=== PATIENT | female | born 1985 | race Caucasian/White ===

== ENCOUNTER 2016-03-31 16:34 | Outpatient (CLI) | payer OTHER | END 2016-03-31 19:45 | disposition home or self-care (01) | LOC: OBC SRH 16:34 → OB SRH 16:36 → OBC SRH 19:45 | DX: O47.1 False labor at or after 37 completed weeks of gestation (principal); Z3A.39 39 weeks gestation of pregnancy ==

== ENCOUNTER 2016-04-06 17:14 | Observation (INO) | payer OTHER ==
[~2016-04-06] VITALS: Ht 175.3 cm; Wt 75.7 kg
--- NOTE | 2016-04-07 12:16 | DIAGNOSTIC IMAGING REPORT ---
PROCEDURE: US BIOPHYSICAL PROFILE (OB) INDICATION: Postdate TECHNIQUE: High-resolution transabdominal scans during 30-minute observation time interval. COMPARISON: OB ultrasound 11/05/2015 FINDINGS: Viable intrauterine in breech position. Nuchal cord wrapped around the neck. Amniotic fluid index 6.3 cm (2.5 percentile). Largest pocket 2.5 cm. MOVEMENTS: 2 (Criteria - 3 discrete body/limb movements during 30-minute time interval.) TONE: 2. (Criteria - 1 episode of active extension and flexion of the limbs or trunk during 30-minute time interval. Opening and closing of the hand considered normal tone.) BREATHIN. (Criteria - 1 episode > 30 seconds during 30-minute time interval. Hiccoughs count as breathing activity.) AMNIOTIC FLUID INDEX: 2. (Criteria - a single pocket of 2 cm fluid in vertical axis considered adequate.) IMPRESSION: 1. Biophysical profile score 6/8 2. Nuchal cord wrapped around the neck. 3. Results discussed with Dr. Israel
--- NOTE | 2016-04-07 13:29 | DISCHARGE SUMMARY ---
ADMIT DATE: 04/06/2016 DISCHARGE DATE: 04/06/2016 DISCHARGE DIAGNOSIS: At 40+ weeks, questionable strip, most likely due to methadone treatment, decreased biophysical profile, amniotic fluid index of 6, possible cord around the neck x2, breech presentation. CHIEF COMPLAINT: The patient is a 30-year-old 3, para 1 who presents at 40-1/2 weeks, presenting with questionable rupture of fluid and labor. HISTORY OF PRESENT ILLNESS: The patient is not in labor, but noted to be on 60 mg of methadone and have a reactive NST with occasional decelerations. The patient was evaluated overnight and had a biophysical profile ordered which shows 4/8 for decreased breathing and an JIMMIE of 6. She was also noted to be breech and possible cord was wrapped around the neck. Due to staffing, the patient is being transferred to a local facility as patient is being accepted. MEDICAL/SURGICAL HISTORY: Past OB history is TAB, ectopic . Medical history noncontributory. Sexual history negative. She has been seen regularly at our clinic. Basically previous heroin user, on methadone. Estimated due date. Her last ultrasound on 08/19/2015 at 7 weeks 4 days makes her due 04/02/2016, now 40+ weeks. Second ultrasound was confirmatory of 18 weeks 5 days. MEDICATIONS: 1. She is currently on 60 mg of methadone at [facility]. ALLERGIES: 1. NONE. SOCIAL HISTORY: Not a smoker or drinker. PHYSICAL EXAMINATION: VITAL SIGNS: Stable. HEENT: Grossly intact. ABDOMEN: Normal abdominal exam. CHEST: Normal. EXTREMITIES: Normal. No clubbing, cyanosis, erythema or edema. PELVIC: Exam was not done in the last 2 days. PLAN: Due to decreased staffing and inability to perform a section in the next few hours, we are transferring the patient to a local facility and currently talking to the physicians at [place] awaiting their acceptance.
== END 2016-04-07 14:45 | disposition short-term general hospital (02) ==
LOC: OBC SRH 17:14 → OB SRH 17:17 → OBC SRH 21:30 → OB SRH 04-07 14:45
PROVIDERS: ADMIT Obstetrics & Gynecology
DX: O32.1XX0 Maternal care for breech presentation, not applicable or unspecified (principal); Z3A.40 40 weeks gestation of pregnancy; O48.0 Post-term pregnancy; O99.323 Drug use complicating pregnancy, third trimester; F11.20 Opioid dependence, uncomplicated

== ENCOUNTER 2016-04-29 19:41 | Emergency (ER) | payer OTHER ==
--- NOTE | 2016-04-29 22:55 | DIAGNOSTIC IMAGING REPORT ---
PROCEDURE: US COMPLETE PELVIC W/TRANSVAG INDICATION: 3 weeks . Postcoital pain. TECHNIQUE: Transabdominal and endovaginal mendez scale and color Doppler sonographic images of the female pelvis were obtained. COMPARISON: Comparison made to obstetrical time (11/05/2015) and pelvic ultrasound (03/11/2011). FINDINGS: TRANSABDOMINAL SCANS: Uterus is of normal size (8.9 x 7.8 x 4.0 cm), although markedly retroflexed. Kidneys are normal. TRANSVAGINAL SCANS: The small of fluid in the endometrial canal. Ovaries are normal (right 2.9 cm, 3.0 cm) normal vascularity. There is a 3.0 x 2.7 x 2.5 cm elongated proteinaceous cyst in the right posterior vaginal canal. IMPRESSION: 1. Severely retroflexed uterus (most likely normal variant). 2. There is a small amount of fluid in the endometrial canal. No evidence of retained products. 3. There is a 3.0 x 2.7 x 2.5 cm proteinaceous cyst in the right posterior vaginal canal most likely representing a Ramakrishna cyst. 4. Otherwise negative pelvic ultrasound. 5. Findings discussed with Dr. Christiansen.
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
--- NOTE | 2016-04-29 23:04 | ED ORDER SUMMARY ---
..... Patient: OLEGARIO CHAMBERLAIN OrderSheet [facility] VisitID: [id number] [place] [address] 30y, F Registration Date/Time: 04/29/2016 ORDER SHEET Weight: 68.0 kg (stated) Allergies: No Known Drug Allergy GENERAL ORDERS: CBC w Diff Urgent (20:10 04/29/2016 Larisa Li) (Ack 20:13 SRedmond) (20:58 EHassan R.N.) CMP Urgent (20:10 04/29/2016 Larisa Li) (Ack 20:13 SRedmond) (20:58 EHassan R.N.) PT with INR Urgent (20:10 04/29/2016 Larisa Li) (Ack 20:13 SRedmond) (20:58 EHassan R.N.) PTT Urgent (20:10 04/29/2016 Larisa Li) (Ack 20:13 SRedmond) (20:58 EHassan R.N.) Urine Urgent (20:10 04/29/2016 Larisa Li) (Ack 20:13 SRedmond) (20:58 EHassan R.N.) UA-Culture if indicated Urgent (20:10 04/29/2016 Larisa Li) (Ack 20:13 SRedmond) (20:58 EHassan R.N.) US Pelvic Complete w Transvag Urgent (21:03 04/29/2016 Larisa Li) (Ack 21:06 SRedmond) (22:35 EHassan R.N.) Wet Prep (Vaginal) (...0) Urgent (21:34 04/29/2016 SRedmond verbal order read back to Larisa Li) (Ack 21:42 SRedmond) (21:48 EHassan R.N.) GC/Chlamydia (Vaginal) (...) Urgent (21:35 04/29/2016 SRedmond verbal order read back to Larisa Li) (Ack 21:42 SRedmond) (21:48 EHassan R.N.) MEDICATION ORDERS: IV FLUIDS: IV NS : initial bolus none -, then 1000 mL/hr for X1 (NOW) (20:07 04/29/2016 Larisa Li) (20:59 Ruma R.NArmen) Ceftriaxone IV 1 gm/50mL (NOW) (21:49 04/29/2016 Zan VARGAS) (22:35 Ruma Hurtado.NArmen) ORDER SHEET NOTES: [Electronically signed by Faith Ramos R.N. (23:24 04/29/2016)] [Electronically signed by Sebastián Christiansen DO (07:24 04/30/2016)] [Electronically locked/signed by Faith Ramos R.N. (23:24 04/29/2016)]
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
--- NOTE | 2016-04-29 23:04 | ED ORDER SUMMARY ---
..... Patient: OLEGARIO CHAMBERLAIN OrderSheet [facility] VisitID: [id number] [place] [address] 30y, F Registration Date/Time: 04/29/2016 ORDER SHEET Weight: 68.0 kg (stated) Allergies: No Known Drug Allergy GENERAL ORDERS: CBC w Diff Urgent (20:10 04/29/2016 Larisa Li) (Ack 20:13 SRedmond) (20:58 EHassan R.N.) CMP Urgent (20:10 04/29/2016 Larisa Li) (Ack 20:13 SRedmond) (20:58 EHassan R.N.) PT with INR Urgent (20:10 04/29/2016 Larisa Li) (Ack 20:13 SRedmond) (20:58 EHassan R.N.) PTT Urgent (20:10 04/29/2016 Larisa Li) (Ack 20:13 SRedmond) (20:58 EHassan R.N.) Urine Urgent (20:10 04/29/2016 Larisa Li) (Ack 20:13 SRedmond) (20:58 EHassan R.N.) UA-Culture if indicated Urgent (20:10 04/29/2016 Larisa Li) (Ack 20:13 SRedmond) (20:58 EHassan R.N.) US Pelvic Complete w Transvag Urgent (21:03 04/29/2016 Larisa Li) (Ack 21:06 SRedmond) (22:35 EHassan R.N.) Wet Prep (Vaginal) (...0) Urgent (21:34 04/29/2016 SRedmond verbal order read back to Larisa Li) (Ack 21:42 SRedmond) (21:48 EHassan R.N.) GC/Chlamydia (Vaginal) (...) Urgent (21:35 04/29/2016 SRedmond verbal order read back to Larisa Li) (Ack 21:42 SRedmond) (21:48 EHassan R.N.) MEDICATION ORDERS: IV FLUIDS: IV NS : initial bolus none -, then 1000 mL/hr for X1 (NOW) (20:07 04/29/2016 Larisa Li) (20:59 Ruma R.NArmen) Ceftriaxone IV 1 gm/50mL (NOW) (21:49 04/29/2016 Zan VARGAS) (22:35 Ruma Hurtado.NArmen) ORDER SHEET NOTES: [Electronically signed by Faith Ramos R.N. (23:24 04/29/2016)] [Electronically signed by Sebastián Christiansen DO (07:24 04/30/2016)] [Electronically locked/signed by Faith Ramos R.N. (23:24 04/29/2016)]
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
--- NOTE | 2016-04-30 07:25 | ED MED RECONCILIATION SUMMARY ---
Patient: OLEGARIO CHAMBERLAIN Medication Reconciliation Report [facility] VisitID: [id number] [address] [place] [address] 30y, F Registration Date/Time: 04/29/2016 Weight: 68.0 kg Height/Length: 69 in. BMI: 22.2 ALLERGIES: No Known Drug Allergy The patient's Home Medications are listed below: CONTINUE TAKING THE FOLLOWING MEDICATIONS: Methadone HCl Oral The source(s) of the original Home Medication information: patient The following Medications were given to the patient in the Emergency Department: IV NS IV Fluids bolus 0, then 1000 mL/hr, administered: 04/29/2016 8:59:00 PM Ceftriaxone [IVPB] IVPB bolus 0, then 1 gm 50 mL/hr, administered: 04/29/2016 10:35:00 PM The following Medications were prescribed to the patient: Take acetaminophen (Tylenol, Datril, etc.) and ibuprofen (Advil, Nuprin, etc.) according to label instructions. Available over the counter. -- Sebastián Christiansen DO Septra DS 800 mg / 160 mg: take 1 tablet orally every 12 hours for 7 days. Dispense fourteen (14). No refills. Substitution is permissible. -- Sebastián Christiansen DO
--- NOTE | 2016-04-30 07:25 | ED DISCHARGE INSTRUCTIONS ---
Patient: OLEGARIO CHAMBERLAIN General Instructions [facility] VisitID: [id number] [place] [id number] 30y, F Registration Date/Time: 04/29/2016 Moderate menorrhagia and metrorrhagia. (post ). Acute urinary tract infection with cystitis. 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 INSTRUCTIONS Do not work for three days. Drink plenty of fluids. No alcohol. Warnings: Further evaluation is necessary in order to recheck abnormal lab, obtain test results, conduct further tests and assess the possibility of serious illness. It is very important to follow up with a physician. GENERAL WARNINGS: Return or contact your physician immediately if your condition worsens or changes unexpectedly, if not improving as expected, or if other problems arise. Your Current Medications: CONTINUE TAKING THE FOLLOWING MEDICATIONS: Methadone HCl Oral. Prescription Medications: Septra DS 800 mg / 160 mg: take 1 tablet orally every 12 hours for 7 days. Dispense fourteen (14). No refills. Substitution is permissible. OTC Medications: Take acetaminophen (Tylenol, Datril, etc.) and ibuprofen (Advil, Nuprin, etc.) according to label instructions. Available over the counter. Follow-up: Follow up with your doctor tomorrow. Follow-up with: Wiliam Israel MD, Obstetrics/Gynecology, , [facility], [address] [place] [address], [facility] Follow up tomorrow. ADDITIONAL INFORMATION Painful Menstrual Periods The uterus is a muscle and contracts normally during the menstrual cycle. The contraction pushes out the build-up of tissue that occurs each month inside the uterus. If the contraction is very strong, it can cause pain because the muscle is not getting enough oxygen for the amount of work it is doing. Pain with menstruation is called dysmenorrhea. The pain may feel like a dull ache or throbbing in the lower abdomen. It may spread to your lower back or inner thighs. In severe cases there may also be nausea, vomiting, loose stools, sweating or dizziness. There are two types of dysmenorrhea: Primary Dysmenorrhea (common menstrual cramps) usually appears within one or two years after you start your periods. It usually gets better or goes away as you get older or when you have a baby. The menstrual cramps usually start just before, or on the day of your period, and last 1-3 days. Treatment is with comfort measures and anti-inflammatory drugs as described below (see Home Care). If your pain is not controlled with these measures, your doctor may prescribe control pills. This will reduce the pain of each period. Secondary Dysmenorrhea starts later in life. The pain begins earlier in the menstrual cycle and lasts longer than common menstrual cramps. It is caused by a specific problem with the pelvic organs, such as: PID (pelvic inflammatory disease) -- an infection in the fallopian tubes Fibroids benign tumors within the wall of the uterus (not cancer) Endometriosis the tissue that lines the uterus spreads outside the uterus and grows there. This tissue swells and bleeds each month, just like the tissue in your uterus, and causes pain. IUD use -- especially in the first few months after placement Once the cause of secondary dysmenorrhea is found, it can be treated. Home Care: Most women with common menstrual cramping (primary dysmenorrhea) can remain active throughout their period. Many women find that regular exercise each werek reduces menstrual pain. If cramping is severe, rest in bed with a heating pad on the lower abdomen or lower back. A hot bath or massage to the lower back and abdomen may also give relief. Smoking can make symptoms worse. If you smoke, ask your doctor for help with a stop-smoking plan. Avoid caffeine and alcohol around the time of your period since these can make symptoms worse. Anti-inflammatory medicine such as aspirin, ibuprofen (Advil, Motrin) or naproxen (Aleve, Naprosyn) can be very helpful, especially if taken at the very first signs of bleeding or cramping . Acetaminophen (Tylenol) is not as effective for this problem. [NOTE: If you have chronic liver or kidney disease or ever had a stomach ulcer or GI bleeding, talk with your doctor before using these medicines.] If your pain is not controlled by the above measures, a prescription pain medicine may be required for a short time. Discuss this with your doctor. Follow Up with your doctor as advised. If you have just started menstruating in the past 1-2 years, and your pain is mild to moderate, your symptoms are most likely not a cause for concern. However, if menstrual cramps are severe enough to interfere with your daily activities, last longer than a few days, or if you are older and just started having menstrual pain, it is important to see your doctor for further evaluation. Get Prompt Medical Attention if any of the following occur: Fever over 100.4F (38.0C) with pelvic pain Uncontrolled menstrual pain or pain that lasts longer than usual or occurs between periods Unusual vaginal discharge between periods Heavy vaginal bleeding (soaking more than one pad an hour for three hours) Passage of pink or mendez tissue from the vagina If you use tampons, watch for the following signs of Toxic Shock Syndrome and return at once: Fever over 102.0F (38.9C), with or without pelvic pain Vomiting, diarrhea Dizziness, weakness or fainting Rash that looks like a bad sunburn Irregular Vaginal Bleeding This is a condition in which bleeding occurs at unexpected times of the month. The bleeding may be heavier or civil drafting technician than usual. Heavy bleeding may lead to anemia. If severe enough, anemia may cause you to look pale and feel weak or fatigued. You might have shortness of breath even with little exertion. The female hormones produced in your body every month may be out of balance. This imbalance leads to bleeding. Causes could include an ovarian cyst, emotional stress, pelvic infection. Failure to ovulate during your last cycle may also cause this problem. Home Care: If bleeding is heavy, rest and avoid heavy exertion. You may use acetaminophen (Tylenol) or ibuprofen (Motrin, Advil) to control pain, unless another pain medicine was prescribed. [NOTE: If you have chronic liver or kidney disease or ever had a stomach ulcer or GI bleeding, talk with your doctor before using these medicines.] Iron supplements may be prescribed for anemia. It takes about 4-6 weeks for the iron to correct the anemia. Take the medicine as directed. See your doctor for a repeat blood test after you finish the iron treatment. If hormones were prescribed to control your bleeding, take them exactly as directed. If you were prescribed a medicine called Provera (medroxyprogesterone), the bleeding should stop while you are taking it. Another period will start a few days after you finish the medicine. Follow Up with your doctor, or as advised, within the next 1-2 days if heavy bleeding continues. Otherwise, follow up within the next 1-2 weeks. Get Prompt Medical Attention if any of the following occur: Bleeding becomes heavy (soaking one pad an hour for three hours) Fever of 100.4F (38C) or higher, or as directed by your healthcare provider Increase in abdominal pain Weakness, dizziness or fainting Heavy Menstrual Bleeding In this condition (also called "menorrhagia"), the menstrual periods are heavier or longer than usual. You may pass large, dark clots. If you have frequent, heavy periods, you may become anemic (low blood count). Severe anemia may cause you to look pale and feel weak or fatigued. You might become short of breath with minimal exertion. Heavy or prolonged bleeding may be due to female hormones being out of balance. Other causes include pelvic infection, benign fibroid tumors, use of an IUD or low thyroid function. It may occur in girls soon after they start to have their periods. Older women close to the age of menopause may also have this type of bleeding. If heavy bleeding does not stop, further evaluation will be needed to find out the exact cause. Home Care: If you tire easily, get plenty of rest. Avoid heavy exertion. Do not take aspirin-containing products and anti-inflammatory medicines like ibuprofen (Advil, Motrin), which thin the blood and may cause more bleeding. You may take acetaminophen (Tylenol) for pain unless another pain medicine was prescribed. If iron was prescribed for anemia, it will take about 4-6 weeks to rebuild your blood and correct the anemia. Take the iron as directed. If hormones were prescribed to control your bleeding, take them just as instructed. If you stop too soon or miss doses, the bleeding may begin again. If you were prescribed a medicine called Provera (medroxyprogesterone), the bleeding should stop while you are taking it. Another period will start a few days after you finish the medicine. Follow Up: You should see your doctor within the next 1-2 days if your bleeding does not begin to improve. Otherwise, schedule an appointment within the next 1-2 weeks. Get Prompt Medical Attention if any of the following occur: Heavier bleeding (soaking one pad an hour for three hours) Heavy bleeding for more than one week Fever of 100.4F (38C) or higher, or as directed by your healthcare provider Increase in abdominal pain Feeling weak or dizzy, fainting Bladder Infection,Female (Adult) A bladder infection ("cystitis" or "UTI") usually causes a constant urge to urinate and a burning when passing urine. Urine may be cloudy, smelly or dark. There may be pain in the lower abdomen. A bladder infection occurs when bacteria from the vaginal area enter the bladder opening (urethra). This can occur from sexual intercourse, wearing tight clothing, dehydration and other factors. Home Care: Drink lots of fluids (at least 6-8 glasses a day, unless you must restrict fluids for other medical reasons). This will force the medicine into your urinary system and flush the bacteria out of your body. Avoid sexual intercourse until your symptoms are gone. Avoid caffeine, alcohol and spicy foods. These can irritate the bladder. A bladder infection is treated with antibiotics. You may also be given Pyridium (generic = phenazopyridine) to reduce the burning sensation. This medicine will cause your urine to become a bright orange color. The orange urine may stain clothing. You may wear a pad or panty-liner to protect clothing. Preventing Future Infections: Always wipe from front to back after a bowel movement. Keep the genital area clean and dry. Drink plenty of fluids each day to avoid dehydration. Both sexual partners should wash before intercourse. Urinate right after intercourse to flush out the bladder. Wear cotton underwear and cotton-lined panty hose; avoid tight-fitting pants. If you are on control pills and are having frequent bladder infections, discuss with your doctor. Follow Up: Return to this facility or see your doctor if ALL symptoms are not gone after three days of treatment. Get Prompt Medical Attention if any of the following occur: Fever of 100.4F (38C) or higher, or as directed by your healthcare provider No improvement by the third day of treatment Increasing back or abdominal pain Repeated vomiting; unable to keep medicine down Weakness, dizziness or fainting Vaginal discharge Pain, redness or swelling in the labia (outer vaginal area) Sulfamethoxazole, Trimethoprim Oral tablet What is this medicine? SULFAMETHOXAZOLE; TRIMETHOPRIM or SMX-TMP (suhl fuh meth OK jeanine zohl; trye METH oh prim) is a combination of a sulfonamide antibiotic and a second antibiotic, trimethoprim. It is used to treat or prevent certain kinds of bacterial infections. It will not work for colds, flu, or other viral infections. How should I use this medicine? Take this medicine by mouth with a full glass of water. Follow the directions on the prescription label. Take your medicine at regular intervals. Do not take it more often than directed. Do not skip doses or stop your medicine early. Talk to your stock drier tender regarding the use of this medicine in children. Special care may be needed. This medicine has been used in children as young as 2 months of age. What side effects may I notice from receiving this medicine? Side effects that you should report to your doctor or health daycare worker as soon as possible: allergic reactions like skin rash or hives, swelling of the face, lips, or tongue breathing problems fever or chills, sore throat irregular heartbeat, chest pain joint or muscle pain pain or difficulty passing urine red pinpoint spots on skin redness, blistering, peeling or loosening of the skin, including inside the mouth unusual bleeding or bruising unusually weak or tired yellowing of the eyes or skin Side effects that usually do not require medical attention (report to your doctor or health daycare worker if they continue or are bothersome): diarrhea dizziness headache loss of appetite nausea, vomiting nervousness What may interact with this medicine? Do not take this medicine with any of the following medications: aminobenzoate potassium dofetilide metronidazole This medicine may also interact with the following medications: MERCED inhibitors like benazepril, enalapril, lisinopril, and ramipril cyclosporine digoxin diuretics indomethacin medicines for diabetes methenamine methotrexate phenytoin potassium supplements pyrimethamine sulfinpyrazone tricyclic antidepressants warfarin What if I miss a dose? If you miss a dose, take it as soon as you can. If it is almost time for your next dose, take only that dose. Do not take double or extra doses. Where should I keep my medicine? Keep out of the reach of children. Store at room temperature between 20 to 25 degrees C (68 to 77 degrees F). Protect from light. Throw away any unused medicine after the expiration date. What should I tell my health care provider before I take this medicine? They need to know if you have any of these conditions: anemia asthma being treated with anticonvulsants if you frequently drink alcohol containing drinks kidney disease liver disease low level of folic acid or [id number] dehydrogenase poor nutrition or malabsorption porphyria severe allergies thyroid disorder an unusual or allergic reaction to sulfamethoxazole, trimethoprim, sulfa drugs, other medicines, foods, dyes, or preservatives or trying to get breast-feeding What should I watch for while using this medicine? Tell your doctor or health daycare worker if your symptoms do not improve. Drink several glasses of water a day to reduce the risk of kidney problems. Do not treat diarrhea with over the counter products. Contact your doctor if you have diarrhea that lasts more than 2 days or if it is severe and watery. This medicine can make you more sensitive to the sun. Keep out of the sun. If you cannot avoid being in the sun, wear protective clothing and use a sunscreen. Do not use sun lamps or tanning beds/booths. You have been given the following additional information: Dysmenorrhea Dysfunctional Uterine Bleeding Menorrhagia Bladder Infection, Female (Adult) Sulfamethoxazole, Trimethoprim Oral tablet Do not work for three days. (Electronically signed by Sebastián Christiansen DO 04/30/2016 7:24)
--- NOTE | 2016-04-30 07:25 | ED MED RECONCILIATION SUMMARY ---
Patient: OLEGARIO CHAMBERLAIN Medication Reconciliation Report [facility] VisitID: [id number] [address] [place] [address] 30y, F Registration Date/Time: 04/29/2016 Weight: 68.0 kg Height/Length: 69 in. BMI: 22.2 ALLERGIES: No Known Drug Allergy The patient's Home Medications are listed below: CONTINUE TAKING THE FOLLOWING MEDICATIONS: Methadone HCl Oral The source(s) of the original Home Medication information: patient The following Medications were given to the patient in the Emergency Department: IV NS IV Fluids bolus 0, then 1000 mL/hr, administered: 04/29/2016 8:59:00 PM Ceftriaxone [IVPB] IVPB bolus 0, then 1 gm 50 mL/hr, administered: 04/29/2016 10:35:00 PM The following Medications were prescribed to the patient: Take acetaminophen (Tylenol, Datril, etc.) and ibuprofen (Advil, Nuprin, etc.) according to label instructions. Available over the counter. -- Sebastián Christiansen DO Septra DS 800 mg / 160 mg: take 1 tablet orally every 12 hours for 7 days. Dispense fourteen (14). No refills. Substitution is permissible. -- Sebastián Christiansen DO
--- NOTE | 2016-04-30 07:25 | ED MAR SUMMARY ---
..... Medication Administration Record Located Within [facility] [address] [place] [address] Patient: OLEGARIO CHAMBERLAIN Visit ID: [id number] 30y, F Weight: 68.0 kg Height/Length: 69 in BMI: 22.2 ALLERGIES: No Known Drug Allergy Start 20:59 04/29/2016 Faith Ramos R.N., Stop 23:06 04/29/2016 Faith Ramos R.N. Medication Administered: IV NS (SALINE), Dose: IV Fluids over 1 hour(s), Rate: 1000 mL/hr, Dispensed: 1000 mL bag, Site: #1 right forearm. Medication Ordered: IV NS : initial bolus none -, then 1000 mL/hr for X1 (NOW). Start 22:35 04/29/2016 Faith Ramos R.N., Stop 22:56 04/29/2016 Faith Ramos R.NArmen Medication Administered: CEFTRIAXONE [IVPB], Dose: 1 gm IVPB over 30 minute(s), Rate: 50 mL/hr, Dispensed: 50 mL bag, Site: #1 right forearm. Medication Ordered: Ceftriaxone IV 1 gm/50mL (NOW).
--- NOTE | 2016-04-30 07:25 | ED MAR SUMMARY ---
..... Medication Administration Record [facility] [address] [place] [address] Patient: OLEGARIO CHAMBERLAIN Visit ID: [id number] 30y, F Weight: 68.0 kg Height/Length: 69 in BMI: 22.2 ALLERGIES: No Known Drug Allergy Start 20:59 04/29/2016 Faith Ramos R.N., Stop 23:06 04/29/2016 Faith Ramos R.N. Medication Administered: IV NS (SALINE), Dose: IV Fluids over 1 hour(s), Rate: 1000 mL/hr, Dispensed: 1000 mL bag, Site: #1 right forearm. Medication Ordered: IV NS : initial bolus none -, then 1000 mL/hr for X1 (NOW). Start 22:35 04/29/2016 Faith Ramos R.N., Stop 22:56 04/29/2016 Faith Ramos R.NArmen Medication Administered: CEFTRIAXONE [IVPB], Dose: 1 gm IVPB over 30 minute(s), Rate: 50 mL/hr, Dispensed: 50 mL bag, Site: #1 right forearm. Medication Ordered: Ceftriaxone IV 1 gm/50mL (NOW).
== END 2016-04-29 23:30 | disposition home or self-care (01) ==
LOC: ED SRH 19:41
DX: N30.90 Cystitis, unspecified without hematuria (principal); N92.0 Excessive and frequent menstruation with regular cycle; R93.8 Abnormal findings on diagnostic imaging of other specified body structures; Z87.891 Personal history of nicotine dependence; F11.20 Opioid dependence, uncomplicated
CPT/HCPCS: 90004; 90100; 90195; 90469; 91227; 91228; 93070; 94001; 94060; 95059

== ENCOUNTER 2016-06-14 19:45 | Emergency (ER) | payer OTHER ==
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
--- NOTE | 2016-06-14 21:00 | ED ORDER SUMMARY ---
..... Patient: OLEGARIO CHAMBERLAIN OrderSheet [facility] VisitID: [id number] [address] [place] [address] 31y, F Registration Date/Time: 06/14/2016 ORDER SHEET Weight: 68.0 kg Allergies: No Known Drug Allergy GENERAL ORDERS: Wet Prep (Cervix) (c) Urgent (20:05 06/14/2016 EKoroleva P.A.-C) (20:18 TBowen R.N.) (Ack 20:21 CHategekimana) CBC w Diff Urgent (20:05 06/14/2016 EKoroleva P.A.-C) (Ack 20:21 CHategekimana) (20:30 TBowen R.N.) UA-Culture if indicated Urgent (20:05 06/14/2016 EKoroleva P.A.-C) (Ack 20:21 CHategekimana) (20:40 TBowen R.N.) CMP Urgent (20:33 06/14/2016 EKoroleva P.A.-C) (Ack 20:34 CHategekimana) (20:40 TBowen R.N.) MEDICATION ORDERS: Keflex PO 500 mg (NOW) (21:01 06/14/2016 EKoroleva P.A.-C) (21:07 TBowen R.N.) IV FLUIDS: ORDER SHEET NOTES: [Electronically signed by Carmela DonisAArmen-Connie (21:04 06/14/2016)] [Electronically signed by Caitlin Mcpherson R.N. (21:06/14/2016)] [Electronically locked/signed by Caitlin Mcpherson R.N. (21:06/14/2016)]
--- NOTE | 2016-06-14 21:00 | ED ORDER SUMMARY ---
..... Patient: OLEGARIO CHAMBERLAIN OrderSheet [facility] VisitID: [id number] [address] [place] [address] 31y, F Registration Date/Time: 06/14/2016 ORDER SHEET Weight: 68.0 kg Allergies: No Known Drug Allergy GENERAL ORDERS: Wet Prep (Cervix) (c) Urgent (20:05 06/14/2016 EKoroleva P.A.-C) (20:18 TBowen R.N.) (Ack 20:21 CHategekimana) CBC w Diff Urgent (20:05 06/14/2016 EKoroleva P.A.-C) (Ack 20:21 CHategekimana) (20:30 TBowen R.N.) UA-Culture if indicated Urgent (20:05 06/14/2016 EKoroleva P.A.-C) (Ack 20:21 CHategekimana) (20:40 TBowen R.N.) CMP Urgent (20:33 06/14/2016 EKoroleva P.A.-C) (Ack 20:34 CHategekimana) (20:40 TBowen R.N.) MEDICATION ORDERS: Keflex PO 500 mg (NOW) (21:01 06/14/2016 EKoroleva P.A.-C) (21:07 TBowen R.N.) IV FLUIDS: ORDER SHEET NOTES: [Electronically signed by Carmela DonisAArmen-Connie (21:04 06/14/2016)] [Electronically signed by Caitlin Mcpherson R.N. (21:06/14/2016)] [Electronically locked/signed by Caitlin Mcpherson R.N. (21:06/14/2016)]
--- NOTE | 2016-06-14 21:10 | ED DISCHARGE INSTRUCTIONS ---
Patient: OLEGARIO CHAMBERLAIN General Instructions [facility] VisitID: [id number] [place] [address] 31y, F Registration Date/Time: 06/14/2016 Post-operative complication (seroma vs small abscess). INSTRUCTIONS Drink plenty of fluids. (warm packs follow up with DR. calero or car shunter in 3-5 days sudden worsening of pain/ fevers return to ER). Prescription Medications: Cephalexin 500 mg: take 1 capsule orally every 8 hours for 10 days. No refill. OTC Medications: Take acetaminophen (Tylenol, Datril, etc.) according to label instructions. Available over the counter. Follow-up: Follow up with your doctor Tuesday. ADDITIONAL INFORMATION Cephalexin Monohydrate Oral tablet What is this medicine? CEPHALEXIN (sef a MAHSA in) is a cephalosporin antibiotic. It is used to treat certain kinds of bacterial infections It will not work for colds, flu, or other viral infections. How should I use this medicine? Take this medicine by mouth with a full glass of water. Follow the directions on the prescription label. This medicine can be taken with or without food. Take your medicine at regular intervals. Do not take your medicine more often than directed. Take all of your medicine as directed even if you think you are better. Do not skip doses or stop your medicine early. Talk to your senior care manager regarding the use of this medicine in children. While this drug may be prescribed for selected conditions, precautions do apply. What side effects may I notice from receiving this medicine? Side effects that you should report to your doctor or health medical care administrator as soon as possible: allergic reactions like skin rash, itching or hives, swelling of the face, lips, or tongue breathing problems pain or trouble passing urine redness, blistering, peeling or loosening of the skin, including inside the mouth severe or watery diarrhea unusually weak or tired yellowing of the eyes, skin Side effects that usually do not require medical attention (report to your doctor or health medical care administrator if they continue or are bothersome): gas or heartburn genital or anal irritation headache joint or muscle pain nausea, vomiting What may interact with this medicine? probenecid some other antibiotics What if I miss a dose? If you miss a dose, take it as soon as you can. If it is almost time for your next dose, take only that dose. Do not take double or extra doses. There should be at least 4 to 6 hours between doses. Where should I keep my medicine? Keep out of the reach of children. Store at room temperature between 59 and 86 degrees F (15 and 30 degrees C). Throw away any unused medicine after the expiration date. What should I tell my health care provider before I take this medicine? They need to know if you have any of these conditions: kidney disease stomach or intestine problems, especially colitis an unusual or allergic reaction to cephalexin, other cephalosporins, penicillins, other antibiotics, medicines, foods, dyes or preservatives or trying to get breast-feeding What should I watch for while using this medicine? Tell your doctor or health medical care administrator if your symptoms do not begin to improve in a few days. Do not treat diarrhea with over the counter products. Contact your doctor if you have diarrhea that lasts more than 2 days or if it is severe and watery. If you have diabetes, you may get a false-positive result for sugar in your urine. Check with your doctor or health medical care administrator. You have been given the following additional information: Cephalexin Monohydrate Oral tablet (Electronically signed by Carmela Donis P.A.-C 06/14/2016 21:04)
--- NOTE | 2016-06-14 21:10 | ED DISCHARGE INSTRUCTIONS ---
Patient: OLEGARIO CHAMBERLAIN General Instructions [facility] VisitID: [id number] [place] [address] 31y, F Registration Date/Time: 06/14/2016 Post-operative complication (seroma vs small abscess). INSTRUCTIONS Drink plenty of fluids. (warm packs follow up with DR. calero or clam sorter in 3-5 days sudden worsening of pain/ fevers return to ER). Prescription Medications: Cephalexin 500 mg: take 1 capsule orally every 8 hours for 10 days. No refill. OTC Medications: Take acetaminophen (Tylenol, Datril, etc.) according to label instructions. Available over the counter. Follow-up: Follow up with your doctor Tuesday. ADDITIONAL INFORMATION Cephalexin Monohydrate Oral tablet What is this medicine? CEPHALEXIN (sef a MAHSA in) is a cephalosporin antibiotic. It is used to treat certain kinds of bacterial infections It will not work for colds, flu, or other viral infections. How should I use this medicine? Take this medicine by mouth with a full glass of water. Follow the directions on the prescription label. This medicine can be taken with or without food. Take your medicine at regular intervals. Do not take your medicine more often than directed. Take all of your medicine as directed even if you think you are better. Do not skip doses or stop your medicine early. Talk to your applications sales consultant regarding the use of this medicine in children. While this drug may be prescribed for selected conditions, precautions do apply. What side effects may I notice from receiving this medicine? Side effects that you should report to your doctor or health direct care supervisor as soon as possible: allergic reactions like skin rash, itching or hives, swelling of the face, lips, or tongue breathing problems pain or trouble passing urine redness, blistering, peeling or loosening of the skin, including inside the mouth severe or watery diarrhea unusually weak or tired yellowing of the eyes, skin Side effects that usually do not require medical attention (report to your doctor or health direct care supervisor if they continue or are bothersome): gas or heartburn genital or anal irritation headache joint or muscle pain nausea, vomiting What may interact with this medicine? probenecid some other antibiotics What if I miss a dose? If you miss a dose, take it as soon as you can. If it is almost time for your next dose, take only that dose. Do not take double or extra doses. There should be at least 4 to 6 hours between doses. Where should I keep my medicine? Keep out of the reach of children. Store at room temperature between 59 and 86 degrees F (15 and 30 degrees C). Throw away any unused medicine after the expiration date. What should I tell my health care provider before I take this medicine? They need to know if you have any of these conditions: kidney disease stomach or intestine problems, especially colitis an unusual or allergic reaction to cephalexin, other cephalosporins, penicillins, other antibiotics, medicines, foods, dyes or preservatives or trying to get breast-feeding What should I watch for while using this medicine? Tell your doctor or health direct care supervisor if your symptoms do not begin to improve in a few days. Do not treat diarrhea with over the counter products. Contact your doctor if you have diarrhea that lasts more than 2 days or if it is severe and watery. If you have diabetes, you may get a false-positive result for sugar in your urine. Check with your doctor or health direct care supervisor. You have been given the following additional information: Cephalexin Monohydrate Oral tablet (Electronically signed by Carmela Donis P.A.-C 06/14/2016 21:04)
--- NOTE | 2016-06-14 21:10 | ED MAR SUMMARY ---
..... Medication Administration Record [facility] [address] [place] [address] Patient: OLEGARIO CHAMBERLAIN Visit ID: [id number] 31y, F Weight: 68.0 kg Height/Length: 69 in BMI: 22.2 ALLERGIES: No Known Drug Allergy Given 21:07 06/14/2016 Jocelyne Cherry Medication Administered: KEFLEX [PO] (CEPHALEXIN), Dose: 500 mg PO. Medication Ordered: Keflex PO 500 mg (NOW).
--- NOTE | 2016-06-14 21:10 | ED MED RECONCILIATION SUMMARY ---
Patient: OLEGARIO CHAMBERLAIN Medication Reconciliation Report [facility] VisitID: [id number] [address] [place] [address] 31y, F Registration Date/Time: 06/14/2016 Weight: 68.0 kg Height/Length: 69 in. BMI: 22.2 ALLERGIES: No Known Drug Allergy The patient's Home Medications are listed below: THE FOLLOWING MEDICATIONS NEED TO BE RECONCILED: Methadose Oral The source(s) of the original Home Medication information: Not obtained. The following Medications were given to the patient in the Emergency Department: Keflex [PO] PO 500 mg, administered: 06/14/2016 9:07:00 PM The following Medications were prescribed to the patient: Take acetaminophen (Tylenol, Datril, etc.) according to label instructions. Available over the counter. -- Carmela Donis, P.A.-C Cephalexin 500 mg: take 1 capsule orally every 8 hours for 10 days. No refill. -- Carmela Donis, P.A.-C
--- NOTE | 2016-06-14 21:10 | ED MAR SUMMARY ---
..... Medication Administration Record [facility] [address] [place] [address] Patient: OLEGARIO CHAMBERLAIN Visit ID: [id number] 31y, F Weight: 68.0 kg Height/Length: 69 in BMI: 22.2 ALLERGIES: No Known Drug Allergy Given 21:07 06/14/2016 Jocelyne Cherry Medication Administered: KEFLEX [PO] (CEPHALEXIN), Dose: 500 mg PO. Medication Ordered: Keflex PO 500 mg (NOW).
--- NOTE | 2016-06-14 21:10 | ED MED RECONCILIATION SUMMARY ---
Patient: OLEGARIO CHAMBERLAIN Medication Reconciliation Report [facility] VisitID: [id number] [address] [place] [address] 31y, F Registration Date/Time: 06/14/2016 Weight: 68.0 kg Height/Length: 69 in. BMI: 22.2 ALLERGIES: No Known Drug Allergy The patient's Home Medications are listed below: THE FOLLOWING MEDICATIONS NEED TO BE RECONCILED: Methadose Oral The source(s) of the original Home Medication information: Not obtained. The following Medications were given to the patient in the Emergency Department: Keflex [PO] PO 500 mg, administered: 06/14/2016 9:07:00 PM The following Medications were prescribed to the patient: Take acetaminophen (Tylenol, Datril, etc.) according to label instructions. Available over the counter. -- Carmela Donis, P.A.-C Cephalexin 500 mg: take 1 capsule orally every 8 hours for 10 days. No refill. -- Carmela Donis, P.A.-C
== END 2016-06-14 21:05 | disposition home or self-care (01) ==
LOC: ED SRH 19:45
DX: O90.89 Other complications of the puerperium, not elsewhere classified (principal); T81.9XXA Unspecified complication of procedure, initial encounter
CPT/HCPCS: 90004; 90100; 90195; 95059